=== PATIENT | female | born 1955 | race Caucasian/White ===

== ENCOUNTER → 2018-02-05 | Outpatient (CLI) | payer OTHER ==
[~2018-02-05] MED LIST: CLN150C1RX; IBP800T; PRD20T; PROP1TAB77; TRM50T
--- NOTE | 2018-02-05 17:25 | Diagnostic Imaging Report ---
INDICATION: Routine screening. COMPARISON: Comparison is made with prior exam from 10/24/2014 and 09/23/2013. The current study was also evaluated with a Computer Aided Detection (CAD) system. FINDINGS: Scattered fibroglandular densities are identified bilaterally. The parenchymal pattern is stable. There are benign calcifications bilaterally. No spiculated mass or malignant appearing microcalcifications are seen. The axillae are unremarkable. IMPRESSION: No mammographic features suspicious for malignancy are identified. ACR BI-RADS Category 2: Benign findings. Result letter will be mailed to the patient. Note: At least 10% of breast cancer is not imaged by mammography. Dictated by: Dictated on workstation # [id number]
== END ==
LOC: RAD 11:03
PROVIDERS: ATTEND Internal Medicine
DX: Z12.31 Encounter for screening mammogram for malignant neoplasm of breast (principal)
CPT/HCPCS: 77067

== ENCOUNTER → 2019-03-31 | Outpatient (CLI) | payer OTHER ==
--- NOTE | 2019-03-31 16:29 | Diagnostic Imaging Report ---
MRI RT LOWER EXT JOINT W/O TECHNIQUE: Multiplanar, multisequence MR imaging of the right knee was performed without contrast. COMPARISON: None available. INDICATION: Right knee pain and swelling. FINDINGS: MENISCI Medial meniscus: Complex tearing throughout the medial meniscus includes a complete radial tear within the mid aspect of the body. Lateral meniscus: Minimal degenerative free edge truncation in the body of the lateral meniscus. LIGAMENTS ACL: Intact. PCL: Intact. MCL: Intact. LCL: The lateral collateral ligamentous complex is intact. EXTENSOR MECHANISM The extensor mechanism is intact. CARTILAGE Medial compartment: Broad area of full-thickness articular cartilage loss throughout the weightbearing aspect of the medial compartment. There is underlying subchondral bone marrow edema and cystic change in the medial femoral condyle and medial tibial plateau. Lateral compartment: The lateral compartment articular cartilage is preserved without high-grade chondromalacia. Patellofemoral compartment: Full-thickness chondral fissuring at the patellar apex. BONE No fracture, stress fracture or osteonecrosis. SOFT TISSUE Small knee joint effusion. No Ireland's cyst. IMPRESSION: 1. Complex tear of the medial meniscus includes a complete radial tear in the mid aspect of its body. 2. Knee osteoarthritis is severe in the medial compartment with diffuse full-thickness articular cartilage loss in the weightbearing aspect. 3. Small knee joint effusion. Dictated by: Dictated on workstation # [id number]
== END ==
LOC: RAD 14:42
PROVIDERS: ATTEND Orthopaedic Surgery
DX: M23.231 Derangement of other medial meniscus due to old tear or injury, right knee (principal); M17.11 Unilateral primary osteoarthritis, right knee
CPT/HCPCS: 73721

== ENCOUNTER 2019-06-22 08:05 | Outpatient (RCR) | payer OTHER | END 2019-06-22 14:01 | disposition home or self-care (01) | PROVIDERS: ATTEND Orthopaedic Surgery | DX: M17.11 Unilateral primary osteoarthritis, right knee (principal); M23.203 Derangement of unspecified medial meniscus due to old tear or injury, right knee ==

== ENCOUNTER 2019-09-26 09:10 | Emergency (ER) | payer OTHER ==
[~2019-09-26] VITALS: Ht 154 cm; Wt 68.0 kg
--- NOTE | 2019-09-26 10:18 | NUR ---
Visited with the pt and her , Ankit. 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 She said that as she entered through the back gate of the [facility], the wind blew open the wooden gate doors and knocked her down on the cement. She said she scraped her elbow badly, but it was the back pain that convinced her to go to the ER. She was tearful. I offered active listening and reassurance. Staff placed a call to the [facility] on pt's behalf and relayed the message that she is to go to Occupational Health before returning to work.
--- NOTE | 2019-09-26 11:31 | ED Back Pain ---
General Chief Complaint: Trauma-Non Activation Stated Complaint: FALL;BACK PAIN Nursing Triage Note: see triage note Nursing Sepsis Screen: No Definite Risk History of Present Illness Date Seen by Provider: Sep 26, 2019 Time Seen by Provider: 11:30 Initial Comments 64-year-old female was walking into work when a door blew open causing her to fall on the sidewalk and landed on her back. She is complaining of mid to lower back pain, right elbow and bilateral rib pain. She has a history of chronic low back pain, but it has worsened since the fall. She denies any head injury or loss of consciousness. She is taking no medicine prior to arrival. She is not anticoagulated or taking ASA. No skin abrasions or lacerations. Timing/Duration: 1-3 Hours Severity: Mild Pain/Injury Location: Back Method of Injury: Fall Associated Symptoms: muscle spasms; No fever, No weakness, No numbness in legs/feet, No tingling in legs/feet, No sensory/motor loss; lower back pain; No loss of bladder control, No loss of bowel control Allergies and Home Medications Allergies Coded Allergies: Sulfa (Sulfonamide Antibiotics) (Unverified Allergy, Mild, RASH, 12/26/07) hydrocodone (Unverified Allergy, Unknown, NAUSEA/VOMITING, 12/01/14) latex (Unverified Adverse Reaction, Intermediate, SKIN REACTION AND "BLISTERS", 12/01/14) Patient Home Medication List Home Medication List Reviewed: Yes Review of Systems Constitutional: no symptoms reported, see HPI Musculoskeletal: see HPI, back pain (lower thoracic and upper lumbar), joint pain (right elbow) All Other Systems Reviewed Negative Unless Noted: Yes Past Arnbrmp-Vwvxtt-Ljzpjw Hx Past Med/Social Hx: Reviewed Nursing Past Med/Soc Hx Patient Social History Alcohol Use: Denies Use Recreational Drug Use: Yes Smoking Status: Never a Smoker Recent Foreign Travel: No Contact w/Someone Who Travel: No Recent Infectious Disease Expo: No Recent Hopitalizations: No Physical Abuse: No Sexual Abuse: No Immunizations Up To Date Date of Influenza Vaccine: Sep 21, 2019 Past Medical History Surgeries: Yes ( HEART CATH, COLONOSCOPY AND EGD) Gallbladder Respiratory: No Cardiac: Yes Hypertension Neurological: No Reproductive Disorders: No Genitourinary: No Gastrointestinal: No Musculoskeletal: Yes (torn miniscus) Arthritis Endocrine: No HEENT: No Psychosocial: No Blood Disorders: No Physical Exam Vital Signs Vital Signs - First Documented 09/26/19 09:54 Temp 36.5 Pulse 96 Resp 18 B/P (MAP) 180/103 (128) Pulse Ox 99 O2 Delivery Room Air Capillary Refill : Less Than 3 Seconds Height, Weight, BMI Height: 5'2.00" Weight: 165lbs. oz. 74.556408ek; 28.00 BMI Method: General Appearance: No Apparent Distress, WD/WN HEENT: PERRL/EOMI, TMs Normal, Normal ENT Inspection, Pharynx Normal Neck: Full Range of Motion, Normal Inspection, Non Tender, Supple Cardiovascular: Regular Rate, Rhythm, No Edema, No Murmur, Normal Peripheral Pulses Respiratory: Lungs Clear, Normal Breath Sounds, Other (bilat rib pain, no crepitus or ecchymosis. ) Gastrointestinal: Normal Bowel Sounds, Non Tender, Soft Back: Normal Inspection, No CVA Tenderness; No Decreased Range of Motion; Muscle Spasm, Vertebral Tenderness (lower Thoracic and upper lumbar with some radiation to ribs. ), Other (Power V/V L4-S1) Extremity: Normal Capillary Refill, Normal Range of Motion, No Calf Tenderness, No Pedal Edema, Pelvis Stable, Other (Right elbow full ROM, tenderness bilat condyles, no swelling, ecchymosis or erythema.) Neurologic/Psychiatric: Alert, Oriented x3, No Motor/Sensory Deficits, Normal Mood/Affect Skin: Normal Color, Warm/Dry Lymphatic: No Adenopathy Progress/Results/Core Measures Results/Orders My Orders Orders - ALEXANDRO LAY Ribs/ Bilateral (09/26/19 11:39) Elbow, Right, 3 Views (09/26/19 11:39) Thoracic Spine, 2 Views Only (09/26/19 11:39) Lumbar Spine - 2-3 Views (09/26/19 11:39) Ibuprofen Tablet (Motrin Tablet) (09/26/19 11:45) Cyclobenzaprine Tablet (Flexeril Tablet) (09/26/19 11:39) Dipht,Pertuss(Acell),Tet Adult (Boostrix (09/26/19 13:15) Medications Given in ED Current Medications Medications Dose Ordered Sig/Gabriel Route Start Time Stop Time Status Last Admin Dose Admin Diphtheria/ Tetanus/Acell Pertussis 0.5 ml ONCE ONCE IM 09/26/19 13:15 09/26/19 13:16 DC 09/26/19 13:21 0.5 ML Ibuprofen 600 mg ONCE ONCE PO 09/26/19 11:45 09/26/19 11:46 DC 09/26/19 13:15 600 MG Vital Signs/I&O 09/26/19 09/26/19 09:54 13:25 Temp 36.5 36.5 Pulse 96 82 Resp 18 18 B/P (MAP) 180/103 (128) 177/81 (128) Pulse Ox 99 100 O2 Delivery Room Air Room Air Blood Pressure Mean: 128 POS Progress Progress Note : Time: 11:30 Progress Note Patient seen and evaluated, we'll obtain x-rays of the thoracic and lumbar spine, bilateral ribs and right elbow. Will give ibuprofen 600 mg and Flexeril 10 mg. Ice to back. 1230 x-ray results reviewed with the patient. Reports pain is better after taking the ibuprofen and Flexeril. 1300 discharge instructions and return precautions reviewed with the patient. Diagnostic Imaging Diagonstic Imaging: Xray Plain Films/CT/US/NM/MRI: elbow Comments NAME: SEB DUQUE Иван MED REC#: [id number] PT STATUS: REG ER : 1955 PHYSICIAN: ALEXANDRO LAY ADMIT DATE: 09/26/19/ER Draft POSDate of Exam:09/26/19 ELBOW, RIGHT, 3 VIEWS INDICATION: Fall. Injury. Pain. COMPARISON: None. FINDINGS: Three views of the right elbow show no fractures, dislocations, or other acute bony abnormalities identified. The joint spaces are well maintained throughout. The soft tissues appear unremarkable. No radiopaque foreign bodies are identified. IMPRESSION: No acute fractures or dislocations of the right elbow. Dictated on workstation # [id number] Dict: 09/26/19 1226 Trans: 09/26/19 1229 [id number] Interpreted by: DAKOTAH ORTEGA MD Electronically signed by: Reviewed: Reviewed by Me Diagonstic Imaging: Xray Plain Films/CT/US/NM/MRI: other (lumbar spine) Comments NAME: NETOSEB MED REC#: [id number] PT STATUS: REG ER : 1955 PHYSICIAN: ALEXANDRO LAY ADMIT DATE: 09/26/19/ER Draft POSDate of Exam:09/26/19 LUMBAR SPINE - 2-3 VIEWS CLINICAL INDICATION: Wood gate hit patient. Patient slipped and fell and has rib pain, back pain, and elbow pain. EXAM: X-ray of the lumbar spine, 3 views. COMPARISON: None. FINDINGS: There is excessive kyphosis of the thoracolumbar region. There is no definite acute fracture or dislocation seen. There is facet arthropathy in the lower lumbar spine. The intervertebral disc heights are well-maintained. There are degenerative spurs involving the thoracic spine. Transitional lumbosacral vertebra is noted. The sacroiliac joints are partially fused. Surgical clips are seen overlying the right upper quadrant which could be related to cholecystectomy changes. IMPRESSION: 1. There is no acute thoracic spine fracture or dislocation. 2. Lumbar spine degenerative disease. Dictated on workstation # [id number] Dict: 09/26/19 1233 Trans: 09/26/19 1237 [id number] Interpreted by: RAINER MOURA MD Electronically signed by: Reviewed: Reviewed by Me Diagonstic Imaging: Xray Plain Films/CT/US/NM/MRI: other (and thoracic spine) Comments NAME: SEB DUQUE [facility] REC#: [id number] PT STATUS: REG ER : 1955 PHYSICIAN: ALEXANDRO LAY ADMIT DATE: 09/26/19/ER Draft POSDate of Exam:09/26/19 THORACIC SPINE, 2 VIEWS ONLY Clinical indication: [place] hit patient. Patient slipped and fell. Patient has rib pain and back pain and elbow pain. Exam: X-ray of the thoracic spine, AP and lateral views. Comparison: None. Findings: There is excessive kyphosis of the thoracic spine. Of note, the upper thoracic spine vertebra are obscured on lateral view due to overlapping anatomical structures. There is no gross acute thoracic spine fracture or dislocation is visualized. Visualized portions of the lungs show no significant abnormality. Impression: There is no gross acute thoracic spine fracture or dislocation. If there is continued concern for fracture, then CT scan would better evaluate. Dictated on workstation # [id number] Dict: 09/26/19 1234 Trans: 09/26/19 1238 [id number] Interpreted by: RAINER MOURA MD Electronically signed by: Reviewed: Reviewed by Me Diagonstic Imaging: Xray Plain Films/CT/US/NM/MRI: chest (ribs) Comments NAME: SEB DUQUE [facility] REC#: [id number] PT STATUS: REG ER : 1955 PHYSICIAN: ALEXANDRO LAY ADMIT DATE: 09/26/19/ER Draft POSDate of Exam:09/26/19 RIBS/ BILATERAL INDICATION: Pain status post injury. COMPARISON: 12/18/2015. FINDINGS: Single frontal radiographic view of the chest was obtained and shows normal cardiac silhouette and pulmonary vasculature. Lungs are clear. There is no focal consolidation, large effusion, nor pneumothorax. Multiple dedicated radiographic views of the bilateral ribs were also obtained. No healing or displaced rib fractures are seen on the either side. No other gross acute osseous abnormalities are identified. IMPRESSION: 1. No acute cardiopulmonary process. 2. No healing or displaced rib fractures are identified on either side. Dictated on workstation # [id number] Dict: 09/26/19 1240 Trans: 09/26/19 1251 [id number] Interpreted by: DAKOTAH ORTEGA MD Electronically signed by: Reviewed: Reviewed by Me Departure Impression Primary Impression: Fall Qualified Codes: W19.XXXA - Unspecified fall, initial encounter Additional Impressions: Contusion of right elbow Qualified Codes: S50.01XA - Contusion of right elbow, initial encounter Low back pain Qualified Codes: M54.5 - Low back pain Disposition: 01 HOME, SELF-CARE Condition: Stable Departure-Patient Inst. Decision time for Depature: 13:00 Referrals: AIDAN WHATLEY DO (PCP) Primary Care Physician Patient Instructions: Elbow Sprain (DC), Low Back Pain (DC) Add. Discharge Instructions: Alternate heat and ice for 20 minutes to low back and right elbow. You may alternate between ibuprofen 600 mg and Tylenol 650 mg every 4 hours for pain. Follow-up your primary care provider if symptoms are not improving or worsen. Gentle range of motion to your low back and right elbow every 2-3 hours, while awake. Return to emergency department for new, urgent health care needs. All discharge instructions reviewed with patient and/or family. Voiced understanding. Work/School Note: Work Release Form Date Seen in the Emergency Department: Sep 26, 2019 Return to Work: Sep 26, 2019 Restrictions: No Restrictions Copy Copies To 1: SHELL PADILLA MD, AMY ARNP Sep 26, 2019 11:31 POS
[2019-09-26] MEDS ORDERED: CYCLOBENZAPRINE 10 MG (FLEXERIL) TAB PO STA (11:39)
[2019-09-26] MEDS ORDERED: IBUPROFEN 600 MG (MOTRIN) TAB PO ONE (11:45)
--- NOTE | 2019-09-26 12:29 | Diagnostic Imaging Report ---
INDICATION: Fall. Injury. Pain. COMPARISON: None. FINDINGS: Three views of the right elbow show no fractures, dislocations, or other acute bony abnormalities identified. The joint spaces are well maintained throughout. The soft tissues appear unremarkable. No radiopaque foreign bodies are identified. IMPRESSION: No acute fractures or dislocations of the right elbow. Dictated by: Dictated on workstation # [id number]
--- NOTE | 2019-09-26 12:38 | Diagnostic Imaging Report ---
CLINICAL INDICATION: Wood gate hit patient. Patient slipped and fell and has rib pain, back pain, and elbow pain. EXAM: X-ray of the lumbar spine, 3 views. COMPARISON: None. FINDINGS: There is excessive kyphosis of the thoracolumbar region. There is no definite acute fracture or dislocation seen. There is facet arthropathy in the lower lumbar spine. The intervertebral disc heights are well-maintained. There are degenerative spurs involving the thoracic spine. Transitional lumbosacral vertebra is noted. The sacroiliac joints are partially fused. Surgical clips are seen overlying the right upper quadrant which could be related to cholecystectomy changes. IMPRESSION: 1. There is no acute thoracic spine fracture or dislocation. 2. Lumbar spine degenerative disease. Dictated by: Dictated on workstation # [id number]
--- NOTE | 2019-09-26 12:38 | Diagnostic Imaging Report ---
Clinical indication: Woodgate hit patient. Patient slipped and fell. Patient has rib pain and back pain and elbow pain. Exam: X-ray of the thoracic spine, AP and lateral views. Comparison: None. Findings: There is excessive kyphosis of the thoracic spine. Of note, the upper thoracic spine vertebra are obscured on lateral view due to overlapping anatomical structures. There is no gross acute thoracic spine fracture or dislocation is visualized. Visualized portions of the lungs show no significant abnormality. Impression: There is no gross acute thoracic spine fracture or dislocation. If there is continued concern for fracture, then CT scan would better evaluate. Dictated by: Dictated on workstation # [id number]
--- NOTE | 2019-09-26 12:52 | Diagnostic Imaging Report ---
INDICATION: Pain status post injury. COMPARISON: 12/18/2015. FINDINGS: Single frontal radiographic view of the chest was obtained and shows normal cardiac silhouette and pulmonary vasculature. Lungs are clear. There is no focal consolidation, large effusion, nor pneumothorax. Multiple dedicated radiographic views of the bilateral ribs were also obtained. No healing or displaced rib fractures are seen on the either side. No other gross acute osseous abnormalities are identified. IMPRESSION: 1. No acute cardiopulmonary process. 2. No healing or displaced rib fractures are identified on either side. Dictated by: Dictated on workstation # [id number]
[2019-09-26] MEDS ORDERED: TETANUS,DIPTH,PERTUSS P/F (BOOSTRIX) 0.5 ML VIAL IM ONE (13:15)
[2019-09-26 13:25] VITALS: BP 177/81
== END 2019-09-26 13:25 | disposition home or self-care (01) ==
LOC: EDUNIT# 09:10 → ER 09:11
DX: S50.01XA Contusion of right elbow, initial encounter (principal); M54.5 Low back pain; I10 Essential (primary) hypertension; Z95.9 Presence of cardiac and vascular implant and graft, unspecified; Z88.2 Allergy status to sulfonamides; Z88.5 Allergy status to narcotic agent; Z91.040 Latex allergy status; W19.XXXA Unspecified fall, initial encounter; Y92.480 Sidewalk as the place of occurrence of the external cause
CPT/HCPCS: 71110; 72070; 72100; 73080; 90715

== ENCOUNTER → 2019-10-21 | Outpatient (CLI) | payer OTHER ==
--- NOTE | 2019-10-24 09:04 | Diagnostic Imaging Report ---
INDICATION: Screening. TECHNIQUE: The current study was also evaluated with a Computer Aided Detection (CAD) system. 3D Tomographic imaging was also performed. COMPARISON: 02/05/2018, 10/24/2014, and 09/23/2013. FINDINGS: The fibroglandular tissue is heterogeneously dense. There are benign type calcifications. There is no dominant mass, spiculated lesion, or suspicious calcification identified. The skin, nipples, and axillae are unremarkable. IMPRESSION: Benign findings. ACR BI-RADS Category 2: Benign findings. Result letter will be mailed to the patient. Note: At least 10% of breast cancer is not imaged by mammography. Dictated by: Dictated on workstation # [id number]
== END ==
LOC: RAD 10:06
PROVIDERS: ATTEND Internal Medicine
DX: Z12.31 Encounter for screening mammogram for malignant neoplasm of breast (principal)
CPT/HCPCS: 77067

== ENCOUNTER 2019-12-20 08:08 | Outpatient (RCR) | payer OTHER | END 2019-12-21 10:43 | disposition home or self-care (01) | PROVIDERS: ATTEND Nurse Practitioner Family | DX: M70.51 Other bursitis of knee, right knee (principal); R07.81 Pleurodynia ==

== ENCOUNTER → 2020-10-09 | Outpatient (CLI) | payer OTHER ==
--- NOTE | 2020-10-09 08:18 | Diagnostic Imaging Report ---
EXAMINATION: CT Abdomen Pelvis without contrast. TECHNIQUE: Multiple contiguous axial images were obtained through the abdomen and pelvis without the use of intravenous contrast. All CT scans use one or more of the following dose optimizing techniques: automated exposure control, MA and/or KvP adjustment based on a patient size and exam type, or iterative reconstruction. HISTORY: Hematuria COMPARISON: None available. FINDINGS: Limited views of the lower thorax are unremarkable. The liver is normal without focal lesion. There is no biliary ductal dilation. Gallbladder is surgically absent. Pancreas is normal. Spleen is normal. Adrenal glands are normal. The kidneys are normal. There is no hydronephrosis. Urinary bladder is normal. There are no renal or ureteral calculi. Visualized bowel is normal in caliber without obstruction or inflammation. There is a fat-containing umbilical hernia. No free fluid or air. No abdominal or pelvic lymphadenopathy. Aorta is normal in caliber without aneurysm. There are no suspicious osseus lesions. There is ankylosis of the sacroiliac joints. IMPRESSION: 1. No renal or ureteral calculi. Dictated by: Dictated on workstation # [id number]
== END ==
LOC: RAD 07:45
PROVIDERS: ATTEND Nurse Practitioner Family
DX: Z12.31 Encounter for screening mammogram for malignant neoplasm of breast (principal); R31.9 Hematuria, unspecified; Z90.49 Acquired absence of other specified parts of digestive tract
CPT/HCPCS: 74176

== ENCOUNTER → 2020-11-20 | Outpatient (CLI) | payer OTHER ==
--- NOTE | 2020-11-20 10:06 | Diagnostic Imaging Report ---
INDICATION: Routine screening. Comparison is made to prior mammogram 10/21/2019 and 02/05/2018. 2-D and 3-D bilateral screening mammography was performed with CAD. Scattered fibroglandular densities are identified bilaterally. Other scattered benign calcifications. No mass or malignant appearing microcalcifications are seen. Axillae are unremarkable. IMPRESSION: BI-RADS Category 2 No mammographic features suspicious for malignancy are identified. ACR BI-RADS Category 2: Benign findings. Result letter will be mailed to the patient. Note: At least 10% of breast cancer is not imaged by mammography. Dictated by: Dictated on workstation # [id number]
== END ==
LOC: RAD 07:30
PROVIDERS: ATTEND Nurse Practitioner Family
DX: Z12.31 Encounter for screening mammogram for malignant neoplasm of breast (principal); R31.9 Hematuria, unspecified
CPT/HCPCS: 77063; 77067

== ENCOUNTER 2021-06-06 09:01 | Outpatient (CLI) | payer OTHER ==
[~2021-06-06] VITALS: Ht 154.9 cm; Wt 68.6 kg
[2021-06-06 09:00] VITALS: BP 144/74
[2021-06-06] MEDS ORDERED: CASIRIVIMAB/IMDEVIMAB 1,200 MG in NS (IVPB) 250 ML IV ONE (09:15)
[2021-06-06] MEDS ORDERED: EPINEPHrine INJECTION 1 MG/ML AMP IM PRN (09:15)
[2021-06-06] MEDS ORDERED: diphenhydrAMINE 50 MG/ML INJ (BENADRYL) IV PRN (09:15)
[2021-06-06 10:39] VITALS: BP 119/59
== END 2021-06-06 11:00 | disposition home or self-care (01) ==
LOC: INFUSION 09:01
PROVIDERS: ATTEND Nurse Practitioner Family
DX: Z23 Encounter for immunization (principal); U07.1 COVID-19

== ENCOUNTER → 2022-03-04 | Outpatient (CLI) | payer OTHER ==
--- NOTE | 2022-03-04 10:35 | Diagnostic Imaging Report ---
INDICATION: Postmenopausal screening COMPARISON: 11/05/2005 FINDINGS: AP Spine L1-L4: [BMD (g/cm2): 0.910] [T-Score: -2.4] [Z-Score: -0.9] [BMD Previous: 1.132] [BMD % Change: -19.6] LT Hip Neck: [BMD (g/cm2): 0.830] [T-Score: -1.5] [Z-Score: -0.1] LT Hip Total: [BMD (g/cm2):0.823] [T-Score:-1.5] [Z-Score: -0.3] [BMD Previous: 0.970] [BMD % Change: -15.2] RT Hip Neck: [BMD (g/cm2):0.788] [T-Score:-1.8] [Z-Score:-0.4] RT Hip Total: [BMD (g/cm2):0.921] [T-score:-0.7] [Z-Score:0.5] [BMD Previous:1.017] [BMD % Change:-9.4] *Indicates significant change from prior examination based on 95% confidence level. World Health Organization criteria for BMD interpretation classify patients as Normal (T-score at or above -1.0), Osteopenic (T-score between -1.0 and -2.5) or Osteoporotic (T-score at or below -2.5). LIMITATIONS AND MODIFICATION: None. FRACTURE RISK (FRAX SCORE): The ten year probability of (%): Major Osteoporotic Fracture: [10.2] Hip Fracture: [1.4] IMPRESSION: 1. Osteopenia (Low bone mass). 2. No significant change in bone mineral density since prior examination. 3. See below National Osteoporosis Foundation guidelines on when to potentially initiate pharmacologic therapy. Based on the National Osteoporosis Foundation Guidelines, pharmacologic treatment should be initiated in any of the following, unless clinical conditions suggest otherwise: * Any patient with prior fragility fracture of the hip or vertebrae. A spine fracture indicates 5X risk for subsequent spine fracture and 2X risk for subsequent hip fracture. * Osteoporosis (T-score <-2.5). * Postmenopausal women and men age 50 and older with low bone mass/osteopenia (T-score between -1.0 and -2.5) by DXA and 10-year major osteoporotic fracture greater than 20% or a 10-year probability of hip fracture greater than 3%. These fracture risks are supplied above in the FRAX score, if applicable. * Clinician judgement and/or patient preferences may indicate treatment for people with 10-year fracture probabilities above or below these levels. Dictated by: Dictated on workstation # [id number]
--- NOTE | 2022-03-04 11:30 | Diagnostic Imaging Report ---
INDICATION: Routine screening. COMPARISON: 11/20/2020 and 10/21/2019. TECHNIQUE: 2D and 3D bilateral screening mammography was performed with CAD. FINDINGS: Scattered fibroglandular densities are identified bilaterally. There are benign calcifications in both breasts. No mass or malignant-appearing microcalcifications are identified. The axillae are unremarkable. IMPRESSION: No mammographic features suspicious for malignancy are identified. ACR BI-RADS Category 2: Benign findings. Result letter will be mailed to the patient. Note: At least 10% of breast cancer is not imaged by mammography. Dictated by: Dictated on workstation # [id number]
== END ==
LOC: RAD 09:15
PROVIDERS: ATTEND Internal Medicine
DX: Z12.31 Encounter for screening mammogram for malignant neoplasm of breast (principal); M85.80 Other specified disorders of bone density and structure, unspecified site; Z78.0 Asymptomatic menopausal state
CPT/HCPCS: 77063; 77067; 77080

== ENCOUNTER → 2023-07-22 | Outpatient (CLI) | payer OTHER ==
--- NOTE | 2023-07-22 10:56 | Diagnostic Imaging Report ---
INDICATION: Routine screening. COMPARISON: 03/04/2022 and 11/20/2020. TECHNIQUE: 2D and 3D bilateral screening mammography was performed with CAD. FINDINGS: Both breasts are heterogeneously dense, limiting the sensitivity of mammography. The parenchymal pattern is stable. No mass or malignant-appearing microcalcifications are seen. There are benign calcifications bilaterally. The axillae are unremarkable. IMPRESSION: No mammographic features suspicious for malignancy are identified. ACR BI-RADS Category 2: Benign findings. Result letter will be mailed to the patient. Note: At least 10% of breast cancer is not imaged by mammography. Dictated by: Dictated on workstation # [id number]
== END ==
LOC: RAD 07:22
PROVIDERS: ATTEND Nurse Practitioner Family
DX: Z01.818 Encounter for other preprocedural examination (principal)
CPT/HCPCS: 77063; 77067